=== PATIENT | female | born 1975 | race Hispanic/Latino ===

== ENCOUNTER 2017-05-09 10:50 | Emergency (ER) | payer SELFPAY ==
--- NOTE | 2017-05-09 12:03 | RAD ---
TWO VIEWS CHEST: Date: 05-09-17 Provided Clinical History: Chest pain. FINDINGS: Comparison 05-08-13. Cardiac and mediastinal silhouette is within normal limits. Lungs appear clear. There is no pleural f luid or pneumothorax apparent. IMPRESSION: No evidence for acute cardiopulmonary process. POS: [facility]
[2017-05-09] MEDS ORDERED: Ketorolac Tromethamine 30 MG/ML VIAL ONE (12:17)
== END 2017-05-09 12:41 | disposition home or self-care (01) ==
LOC: ERS 10:50
DX: R07.89 Other chest pain (principal); F31.9 Bipolar disorder, unspecified; F41.9 Anxiety disorder, unspecified; F17.210 Nicotine dependence, cigarettes, uncomplicated; W20.8XXA Other cause of strike by thrown, projected or falling object, initial encounter
CPT/HCPCS: 71046; 93005; 96372; J1885

== ENCOUNTER 2017-07-28 13:04 | Emergency (ER) | payer SELFPAY ==
[2017-07-28] MEDS ORDERED: Dexamethasone 4 mg/ml Vial ONE (13:15)
== END 2017-07-28 13:24 | disposition home or self-care (01) ==
LOC: ERS 13:04
DX: J01.90 Acute sinusitis, unspecified (principal); F31.9 Bipolar disorder, unspecified; F41.9 Anxiety disorder, unspecified; F17.210 Nicotine dependence, cigarettes, uncomplicated
CPT/HCPCS: 99283; J1100

== ENCOUNTER 2018-08-08 03:49 | Emergency (ER) | payer SELFPAY ==
[2018-08-08] MEDS ORDERED: Ketamine 50 MG/ML (10ML VIAL) ONE ×2 (03:50→05:15)
--- NOTE | 2018-08-08 07:50 | CT ---
CT HEAD NONCONTRAST: Date: 08/08/18 INDICATION: Post-traumatic injury, pain, altered mental status. FINDINGS: The ventricular system is normal in size. Septum pellucidum and third ventricle are midline. No intra cranial hemorrhage, mass effect, or midline shift. Prominent mucosal inflammatory change is present w ithin the left maxillary sinus. Additional scattered paranasal sinus mucosal thickening is present. T here is slight left posterior parietooccipital scalp prominence which may relate to mild degree of co ntusion. IMPRESSION: 1. No acute intracranial hemorrhage or mass effect. 2. Prominent mucosal thickening of the left maxillary sinus. Correlate clinically. POS: [facility]
== END 2018-08-08 06:45 | disposition home or self-care (01) ==
LOC: ERS 03:49
DX: F10.129 Alcohol abuse with intoxication, unspecified (principal); F17.210 Nicotine dependence, cigarettes, uncomplicated; F41.9 Anxiety disorder, unspecified; F32.9 Major depressive disorder, single episode, unspecified
CPT/HCPCS: 36415; 70450; 80307; 96361; 96372; 96374

== ENCOUNTER 2019-01-08 13:40 | Emergency (ER) | payer SELFPAY | END 2019-01-08 14:27 | disposition home or self-care (01) | LOC: ERS 13:40 | DX: S02.5XXA Fracture of tooth (traumatic), initial encounter for closed fracture (principal); F41.9 Anxiety disorder, unspecified; F32.9 Major depressive disorder, single episode, unspecified; F17.210 Nicotine dependence, cigarettes, uncomplicated; Z71.6 Tobacco abuse counseling; X58.XXXA Exposure to other specified factors, initial encounter | CPT/HCPCS: 99406 ==

== ENCOUNTER 2019-01-18 21:07 | Emergency (ER) | payer SELFPAY | END 2019-01-18 21:30 | disposition home or self-care (01) | LOC: ERS 21:07 | DX: K02.9 Dental caries, unspecified (principal); F41.9 Anxiety disorder, unspecified; F32.9 Major depressive disorder, single episode, unspecified; F17.210 Nicotine dependence, cigarettes, uncomplicated | CPT/HCPCS: 99282 ==

== ENCOUNTER 2022-04-13 04:28 | Emergency (ER) | payer OTHER, SELFPAY ==
[2022-04-13] MEDS ORDERED: Ondansetron PF 4 MG/2 ML Vial ONE ×2 (04:51→16:20)
[2022-04-13] MEDS ORDERED: Ketorolac Tromethamine 30 MG/ML VIAL ONE ×2 (04:51→16:20)
[2022-04-13 05:26] LABS: #Eosinphils 0.2 thou/uL (0.0-0.7); #Lymphocytes 2.2 thou/uL (1.20-3.40); #Monocytes 0.7 thou/uL (0.11-0.59); #Neutrophils 4.1 thou/uL (1.40-6.50); %Basophils 0.7 % (0.0-1.0); %Eosinophils 3.1 % (0.0-10.0); %Monocytes 9.8 % (0.0-10.0); %Neutrophils 56.4 % (42.0-75.0); Hemoglobin 14.2 g/dL (12.0-16.0); Mean Corpuscular HGB CONC 33.9 g/dL (32.0-36.0); Mean Corpuscular Hemoglobin 31.7 pg (27.0-31.0); Mean Corpuscular Volume 93.5 fl (78.0-98.0); Mean Platelet Volume 8.4 fL (7.4-10.4); Platelet Count 241 10x3/uL (130-400); RBC Distribution Width 12.1 % (11.5-14.5); Red Blood Cell (RBC) Count 4.48 mill/uL (4.20-5.40); White Blood Cell (WBC) Count 7.3 10x3/uL (4.8-10.8)
[2022-04-13 05:48] LABS: ALT (SGPT) 30 U/L (8-55); AST (SGOT) 23 U/L (5-34); Albumin 3.5 g/dL (3.5-5.0); Alkaline Phosphatase 105 U/L (40-110); Anion Gap 12 mmol/L (10-20); BUN (Urea Nitrogen) 19 mg/dL (7.0-18.7); Bilirubin, Total 0.2 mg/dL (0.2-1.2); Calc. Creatinine Clearance 0 mL/min (70-130); Calcium 8.7 mg/dL (7.8-10.44); Carbon Dioxide 24 mmol/L (22-29); Chloride 108 mmol/L (98-107); Estimated GFR 75; Globulin 3.7 g/dL (2.4-3.5); Glucose 106 mg/dL (70-105); Lipase 47 U/L (8-78); Protein, Total 7.2 g/dL (6.0-8.3); Sodium 140 mmol/L (136-145)
[2022-04-13 06:21] LABS: Bacteria/HPF 3+ HPF (None Seen); Bilirubin Negative (Negative); Blood, Urine Negative (Negative); Clarity Turbid (Clear); Glucose, Urine (Dipstick) Normal (Negative); Ketone, Urine Negative (Negative); Leukocyte 500 Leu/uL (Negative); Nitrite 2+ (Negative); Protein, Urine (Dipstick) 10 mg/dL (Neg-Trace); Specific Gravity, Urine 1.027 (1.002-1.036); Squamous Epithelial 0-3 HPF (0-3); Urobilinogen Normal mg/dL (Less than 2); WBC/HPF Greater than 50 HPF (0-3)
[2022-04-13] MEDS ORDERED: cefTRIAXone\\ROCEPHIN 1 GM VIAL ONE (07:30)
[2022-04-13] MEDS ORDERED: Fentanyl 100 MCG/2 ML VIAL ONE ×6 (07:30→18:07)
[2022-04-13 09:13] LABS: SARS-CoV-2 NAA Rapid Test Not Detected (NotDetected)
[2022-04-13] MEDS ORDERED: Iopamidol 370 76% 100 ML VIAL ONE (15:41)
[2022-04-13] MEDS ORDERED: Levofloxacin 500 mg/D5W 100 ml Premix Bag ONE (16:14)
[2022-04-13] MEDS ORDERED: Glycopyrrolate 0.2 MG/ML 5 ML SYRINGE ONE (16:20)
[2022-04-13] MEDS ORDERED: PROPOFOL 200 MG/20 ML VIAL ONE (16:20)
[2022-04-13] MEDS ORDERED: Lidocaine 1% PF 5 ML VIAL ONE (16:20)
[2022-04-13] MEDS ORDERED: Rocuronium Bromide 10 MG/ML (10ML VIAL) ONE (16:20)
[2022-04-13] MEDS ORDERED: NEOSTIGMINE 3 MG/3 ML SYR 3 MG/3 ML SYRINGE ONE (16:20)
[2022-04-13] MEDS ORDERED: Dexamethasone 20 MG/5 ML VIAL ONE (16:20)
[2022-04-13] MEDS ORDERED: ePHEDrine 50 MG/ML VIAL ONE (16:20)
== END 2022-04-13 15:06 | disposition short-term general hospital (02) ==
LOC: ERS 04:28
PROC: 0TC68ZZ Extirpation of Matter from Right Ureter, Via Natural or Artificial Opening Endoscopic (ICD-10-PCS; principal; 2022-04-13)
PROC: 0T768DZ Dilation of Right Ureter with Intraluminal Device, Via Natural or Artificial Opening Endoscopic (ICD-10-PCS; 2022-04-13)
DX: N13.2 Hydronephrosis with renal and ureteral calculous obstruction (principal); F12.10 Cannabis abuse, uncomplicated; F17.210 Nicotine dependence, cigarettes, uncomplicated; Z88.5 Allergy status to narcotic agent; Z20.822 Contact with and (suspected) exposure to COVID-19
CPT/HCPCS: 36415; 71045; 74177; 74420; 80053; 81003; 81015; 83690; 84484; 85025; 87077; 87086; 87186; 93005; 96374; 96375; 96376; C2617; J0696; J1100; J1885; J1956; J2405; J2704; J3010; J3490; Q9967; U0002

== ENCOUNTER 2022-05-10 01:29 | Inpatient (IN) | payer SELFPAY ==
[2022-05-10] MEDS ORDERED: Acetaminophen 500 MG TAB ONE (01:52)
[2022-05-10] MEDS ORDERED: Cefepime 2 GM VIAL ONE (01:52)
[2022-05-10] MEDS ORDERED: Vancomycin 1 GM/200 ML (FROZEN) BAG ONE (01:52)
[2022-05-10] MEDS ORDERED: Ketorolac Tromethamine 30 MG/ML VIAL ONE (01:52)
[2022-05-10 02:04] LABS: #Lymphocytes 1.6 thou/uL (1.20-3.40); #Monocytes 1.6 thou/uL (0.11-0.59); #Neutrophils 11.2 thou/uL (1.40-6.50); %Basophils 0.2 % (0.0-1.0); %Eosinophils 0.2 % (0.0-10.0); %Lymphocytes 10.8 % (21.0-51.0); %Neutrophils 77.8 % (42.0-75.0); Hemoglobin 14.7 g/dL (12.0-16.0); Mean Corpuscular HGB CONC 34.3 g/dL (32.0-36.0); Mean Corpuscular Hemoglobin 31.4 pg (27.0-31.0); Mean Corpuscular Volume 91.5 fl (78.0-98.0); Mean Platelet Volume 8.2 fL (7.4-10.4); Platelet Count 203 10x3/uL (130-400); RBC Distribution Width 12.2 % (11.5-14.5); Red Blood Cell (RBC) Count 4.69 mill/uL (4.20-5.40); White Blood Cell (WBC) Count 14.4 10x3/uL (4.8-10.8)
[2022-05-10 02:09] LABS: BHCG - Serum Negative (NEGATIVE); Pregs Control Background? CLEAR/WHITE (CLR/WHITE); Pregs Control Bar Appear? YES (CONTROL BAR)
[2022-05-10 02:25] LABS: ALT (SGPT) 23 U/L (8-55); AST (SGOT) 21 U/L (5-34); Albumin 3.5 g/dL (3.5-5.0); Alkaline Phosphatase 70 U/L (40-110); Anion Gap 12 mmol/L (10-20); BUN (Urea Nitrogen) 11 mg/dL (7.0-18.7); Calc. Creatinine Clearance 0 mL/min (70-130); Calcium 8.6 mg/dL (7.8-10.44); Carbon Dioxide 21 mmol/L (22-29); Chloride 99 mmol/L (98-107); Estimated GFR 91; Globulin 3.8 g/dL (2.4-3.5); Glucose 123 mg/dL (70-105); Potassium 3.8 mmol/L (3.5-5.1); Protein, Total 7.3 g/dL (6.0-8.3); Sodium 128 mmol/L (136-145)
[2022-05-10] MEDS ORDERED: cefTRIAXone\\ROCEPHIN 1 GM VIAL ONE (05:00)
[2022-05-10 05:06] LABS: Bilirubin Negative (Negative); Blood, Urine Large (Negative); Clarity Turbid (Clear); Glucose, Urine (Dipstick) Negative (Negative); Ketone, Urine Negative (Negative); Leukocyte Moderate (Negative); Nitrite Positive (Negative); Protein, Urine (Dipstick) 100 mg/dL (Neg-Trace); Specific Gravity, Urine Less/Equal 1.005 (1.005-1.030); Urobilinogen 0.2 mg/dL (Less than 2)
[2022-05-10 05:07] LABS: RBC/HPF Greater than 50 HPF (0-3); WBC/HPF 0-3 HPF (0-3)
[2022-05-10 05:09] LABS: Bacteria/HPF 1+ HPF (None Seen); Squamous Epithelial 0-3 HPF (0-3)
[2022-05-10 05:31] LABS: SARS-CoV-2 NAA Rapid Test Not Detected (NotDetected)
[2022-05-10 05:51] VITALS: BMI 28.5
[2022-05-10] MEDS ORDERED: Ondansetron PF 4 MG/2 ML Vial IVP PRN (06:13)
[2022-05-10] MEDS: Sodium Chloride 0.9% 1,000 ML IV SCH ×2 (06:26→20:08)
[2022-05-10] MEDS ORDERED: Vancomycin 1 GM in Premix Bag 1 BAG IVPB SCH (09:00)
[2022-05-10] MEDS ORDERED: Aspirin 325 MG TAB ONE (10:12)
[2022-05-10] MEDS ORDERED: Aspirin 325 MG TAB PO SCH (10:15)
[2022-05-10] MEDS: Acetaminophen 325 MG TAB PO PRN ×2 (10:59→22:01)
[2022-05-10] MEDS ORDERED: Iopamidol-370 76% 500 ML 1 ML ONE (11:49)
[2022-05-10] MEDS: Vancomycin 1 GM in Premix Bag 1 BAG IVPB SCH (15:29)
[2022-05-10] MEDS: Ketorolac Tromethamine 30 MG/ML VIAL IVP PRN (18:01)
[2022-05-11] MEDS: Ketorolac Tromethamine 30 MG/ML VIAL IVP PRN (00:39)
[2022-05-11] MEDS: Vancomycin 1 GM in Premix Bag 1 BAG IVPB SCH ×3 (01:53→22:04)
[2022-05-11 04:34] LABS: #Eosinphils 0.2 thou/uL (0.0-0.7); #Monocytes 1.2 thou/uL (0.11-0.59); #Neutrophils 8.5 thou/uL (1.40-6.50); %Basophils 0.1 % (0.0-1.0); %Eosinophils 1.6 % (0.0-10.0); %Lymphocytes 9.5 % (21.0-51.0); %Monocytes 11.2 % (0.0-10.0); %Neutrophils 77.6 % (42.0-75.0); Hemoglobin 13.5 g/dL (12.0-16.0); Mean Corpuscular Hemoglobin 30.9 pg (27.0-31.0); Mean Corpuscular Volume 93.6 fl (78.0-98.0); Mean Platelet Volume 8.7 fL (7.4-10.4); Platelet Count 190 10x3/uL (130-400); RBC Distribution Width 12.2 % (11.5-14.5); Red Blood Cell (RBC) Count 4.38 mill/uL (4.20-5.40); White Blood Cell (WBC) Count 10.9 10x3/uL (4.8-10.8)
[2022-05-11 04:55] LABS: Anion Gap 11 mmol/L (10-20); BUN (Urea Nitrogen) 11 mg/dL (7.0-18.7); Calc. Creatinine Clearance 115 mL/min (70-130); Calcium 8.5 mg/dL (7.8-10.44); Carbon Dioxide 21 mmol/L (22-29); Chloride 109 mmol/L (98-107); Estimated GFR 108; Glucose 93 mg/dL (70-105); Potassium 4.2 mmol/L (3.5-5.1); Sodium 137 mmol/L (136-145)
[2022-05-11] MEDS ORDERED: cefTRIAXone Sodium 2 MG in Syringe 0 ML IVPB SCH (05:00)
[2022-05-11] MEDS: Acetaminophen 325 MG TAB PO PRN (05:07)
[2022-05-11] MEDS: cefTRIAXone\\ROCEPHIN 2 GM in Sodium Chloride 0.9% 100 ML IVPB SCH (05:08)
[2022-05-11] MEDS: Acetaminophen 325 MG TAB PO SCH ×3 (09:25→22:03)
[2022-05-11 13:14] LABS: Vancomycin, Trough 8.3 ug/mL
[2022-05-11] MEDS ORDERED: Ibuprofen 800 MG TAB PO SCH (14:15)
[2022-05-11] MEDS ORDERED: Vancomycin 1 GM in Premix Bag 1 BAG IVPB SCH (14:30)
[2022-05-12] MEDS: Acetaminophen 325 MG TAB PO SCH ×5 (02:45→21:57)
[2022-05-12 04:23] LABS: #Eosinphils 0.2 thou/uL (0.0-0.7); #Lymphocytes 0.8 thou/uL (1.20-3.40); #Monocytes 0.9 thou/uL (0.11-0.59); #Neutrophils 8.3 thou/uL (1.40-6.50); %Basophils 0.2 % (0.0-1.0); %Eosinophils 1.9 % (0.0-10.0); %Lymphocytes 8.2 % (21.0-51.0); %Monocytes 8.4 % (0.0-10.0); %Neutrophils 81.3 % (42.0-75.0); Hemoglobin 13.1 g/dL (12.0-16.0); Mean Corpuscular HGB CONC 33.5 g/dL (32.0-36.0); Mean Corpuscular Hemoglobin 31.6 pg (27.0-31.0); Mean Corpuscular Volume 94.2 fl (78.0-98.0); Mean Platelet Volume 8.9 fL (7.4-10.4); Platelet Count 200 10x3/uL (130-400); Red Blood Cell (RBC) Count 4.15 mill/uL (4.20-5.40); White Blood Cell (WBC) Count 10.3 10x3/uL (4.8-10.8)
[2022-05-12 04:48] LABS: Anion Gap 11 mmol/L (10-20); BUN (Urea Nitrogen) 12 mg/dL (7.0-18.7); Calc. Creatinine Clearance 104 mL/min (70-130); Calcium 8.4 mg/dL (7.8-10.44); Carbon Dioxide 21 mmol/L (22-29); Chloride 111 mmol/L (98-107); Estimated GFR 100; Glucose 135 mg/dL (70-105); Sodium 139 mmol/L (136-145)
[2022-05-12] MEDS: Vancomycin 1 GM in Premix Bag 1 BAG IVPB SCH ×2 (05:57→13:25)
[2022-05-12] MEDS: cefTRIAXone\\ROCEPHIN 2 GM in Sodium Chloride 0.9% 100 ML IVPB SCH (05:58)
[2022-05-12] MEDS ORDERED: fentaNYL PF 100 MCG/2 ML SYRINGE ONE ×2 (09:56→11:01)
[2022-05-12] MEDS ORDERED: Famotidine/PF 20 mg/2ml Vial ONE (09:57)
[2022-05-12] MEDS ORDERED: Ondansetron PF 4 MG/2 ML Vial ONE (10:10)
[2022-05-12] MEDS ORDERED: Metoclopramide HCl 10 MG/2 ML VIAL ONE (10:10)
[2022-05-12] MEDS ORDERED: Ketorolac Tromethamine 30 MG/ML VIAL ONE (10:10)
[2022-05-12] MEDS ORDERED: PROPOFOL 200 MG/20 ML VIAL ONE (10:10)
[2022-05-12] MEDS ORDERED: PHENYLEPHRINE-NS 100 MCG/ML 10 ML SYRINGE ONE (10:10)
[2022-05-12] MEDS ORDERED: Lidocaine 1% PF 5 ML VIAL ONE (10:10)
[2022-05-12] MEDS ORDERED: Promethazine HCl 25 MG/ML VIAL IM PRN (10:54)
[2022-05-12] MEDS ORDERED: Ondansetron HCl/PF 4 MG/2 ML Vial IVP PRN (10:54)
[2022-05-12] MEDS: Ibuprofen 800 MG TAB PO PRN ×3 (12:21→22:16)
[2022-05-12 13:33] LABS: Vancomycin, Trough 14.6 ug/mL
[2022-05-13] MEDS ORDERED: VANCOMYCIN 1.25 GM/250 ML BAG 1.25 GM in Premix Bag 1 BAG IVPB SCH (02:00)
[2022-05-13] MEDS: Acetaminophen 325 MG TAB PO SCH ×2 (02:39→09:46)
[2022-05-13 05:41] LABS: #Eosinphils 0.3 thou/uL (0.0-0.7); #Lymphocytes 1.1 thou/uL (1.20-3.40); #Monocytes 0.5 thou/uL (0.11-0.59); #Neutrophils 4.2 thou/uL (1.40-6.50); %Basophils 0.1 % (0.0-1.0); %Eosinophils 4.3 % (0.0-10.0); %Lymphocytes 17.9 % (21.0-51.0); %Monocytes 8.4 % (0.0-10.0); %Neutrophils 69.3 % (42.0-75.0); Hemoglobin 12.1 g/dL (12.0-16.0); Mean Corpuscular HGB CONC 32.6 g/dL (32.0-36.0); Mean Corpuscular Hemoglobin 31.1 pg (27.0-31.0); Mean Corpuscular Volume 95.2 fl (78.0-98.0); Mean Platelet Volume 8.8 fL (7.4-10.4); Platelet Count 229 10x3/uL (130-400); RBC Distribution Width 12.2 % (11.5-14.5); White Blood Cell (WBC) Count 6.1 10x3/uL (4.8-10.8)
[2022-05-13 06:01] LABS: Anion Gap 12 mmol/L (10-20); BUN (Urea Nitrogen) 14 mg/dL (7.0-18.7); Calc. Creatinine Clearance 105 mL/min (70-130); Calcium 7.9 mg/dL (7.8-10.44); Carbon Dioxide 18 mmol/L (22-29); Chloride 113 mmol/L (98-107); Estimated GFR 101; Glucose 136 mg/dL (70-105); Potassium 3.9 mmol/L (3.5-5.1); Sodium 139 mmol/L (136-145)
[2022-05-13] MEDS ORDERED: FLU VACC QS2022-23(6MOS UP)/PF 60 MCG/0.5 ML SYRINGE IM ONE (06:15)
[2022-05-13] MEDS: cefTRIAXone\\ROCEPHIN 2 GM in Sodium Chloride 0.9% 100 ML IVPB SCH (06:31)
[2022-05-13] MEDS ORDERED: traMADol HCl 50 MG TAB PO PRN (09:35)
[2022-05-13] MEDS ORDERED: Senokot S 8.6-50 MG TAB PO SCH ×2 (09:45→21:00)
[2022-05-13] MEDS ORDERED: Polyethylene Glycol 3350 17 GM Packet PO SCH (09:45)
[2022-05-13 13:16] VITALS: BP 102/68; TEMP 97.2
[2022-05-14] MEDS ORDERED: Polyethylene Glycol 3350 17 GM Packet PO SCH (09:00)
== END 2022-05-13 13:20 | disposition home or self-care (01) | DRG 698 ==
LOC: ERS 01:29 → T4-B 04:44 → 2NO 13:03
PROVIDERS: ADMIT Student in an Organized Health Care Education/Training Program; ATTEND Student in an Organized Health Care Education/Training Program
PROC: 3E0334Z Introduction of Serum, Toxoid and Vaccine into Peripheral Vein, Percutaneous Approach (ICD-10-PCS; principal; 2022-05-10)
PROC: 0TP98DZ Removal of Intraluminal Device from Ureter, Via Natural or Artificial Opening Endoscopic (ICD-10-PCS; 2022-05-12)
PROC: 0J9M0ZZ Drainage of Left Upper Leg Subcutaneous Tissue and Fascia, Open Approach (ICD-10-PCS; 2022-05-12)
DX: T83.592A Infection and inflammatory reaction due to indwelling ureteral stent, initial encounter (principal); A41.9 Sepsis, unspecified organism; L03.116 Cellulitis of left lower limb; E87.1 Hypo-osmolality and hyponatremia; L02.416 Cutaneous abscess of left lower limb; N10 Acute pyelonephritis; Z66 Do not resuscitate; Z20.822 Contact with and (suspected) exposure to COVID-19; Z88.5 Allergy status to narcotic agent; Y84.6 Urinary catheterization as the cause of abnormal reaction of the patient, or of later complication, without mention of misadventure at the time of the procedure
CPT/HCPCS: 36415; 36416; 71045; 74177; 80048; 80053; 80202; 81003; 81015; 83605; 84145; 84484; 84703; 85025; 85652; 86140; 87040; 87070; 87077; 87086; 87186; 87205; 93005; 93010; 97139; J0692; J0696; J1885; J2405; J2704; J2765; J3370; J3370-JW; J3490; J7050; Q9967; S0028

== ENCOUNTER 2023-03-16 13:38 | Emergency (ER) | payer SELFPAY | END 2023-03-16 16:27 | disposition home or self-care (01) | LOC: ERS 13:38 | DX: G56.01 Carpal tunnel syndrome, right upper limb (principal); B86 Scabies; F17.210 Nicotine dependence, cigarettes, uncomplicated ==

== ENCOUNTER 2025-02-17 15:34 | Emergency (ER) | payer SELFPAY ==
[~2025-02-17 15:34] MED LIST: Iopamidol-370 76% 500 ML MDV (1 ML CHARGE) ONE
[2025-02-17 18:17] LABS: #Basophils 0.04 10x3/uL (0.0-0.2); #Eosinophils 0.18 10x3/uL (0.0-0.7); #Monocytes 0.77 10x3/uL (0.11-0.59); #Neutrophils 3.66 10x3/uL (1.40-6.50); %Basophils 0.6 % (0.0-1.0); %Eosinophils 2.5 % (0.0-10.0); %Lymphocytes 33.6 % (21.0-51.0); %Monocytes 10.9 % (0.0-10.0); %Neutrophils 51.8 % (42.0-75.0); Hematocrit 44.0 % (36.0-47.0); Hemoglobin 14.5 g/dL (12.0-16.0); Mean Corpuscular Hemoglobin 30.0 pg (27.0-31.0); Mean Corpuscular Volume 90.9 fL (78.0-98.0); Platelet Count 218 10x3/uL (130-400); Red Blood Cell (RBC) Count 4.84 mill/uL (4.20-5.40); White Blood Cell (WBC) Count 7.06 10x3/uL (4.8-10.8)
[2025-02-17 18:40] LABS: ALT (SGPT) 76 U/L (Less than 34); AST (SGOT) 58 U/L (11-34); Albumin 3.9 g/dL (3.1-4.5); Alkaline Phosphatase 117 U/L (40-110); Anion Gap 12 mmol/L (10-20); BUN (Urea Nitrogen) 16 mg/dL (9.8-20.1); Bilirubin, Total 0.5 mg/dL (0.3-1.2); Calc. Creatinine Clearance 0 mL/min (70-130); Calcium 9.3 mg/dL (7.8-10.44); Carbon Dioxide 23 mmol/L (22-29); Chloride 109 mmol/L (98-107); Globulin 3.5 g/dL (2.4-3.5); Glucose 90 mg/dL (70-105); Potassium 4.7 mmol/L (3.5-5.1); Sodium 139 mmol/L (136-145)
== END 2025-02-17 19:33 | disposition home or self-care (01) ==
LOC: ERS 15:34
DX: R07.89 Other chest pain (principal); J32.9 Chronic sinusitis, unspecified; K04.7 Periapical abscess without sinus; F17.210 Nicotine dependence, cigarettes, uncomplicated
CPT/HCPCS: 70450; 70487; 71045; 80053; 83880; 84484; 85025; 93005; 94760; 96374